=== PATIENT | male | born 1955 | race Caucasian/White ===

== ENCOUNTER 2018-05-25 15:29 | Emergency (ER) | payer OTHER ==
[2018-05-25] MEDS ORDERED: RANITIDINE 50 MG/2 ML VIAL IVP ONE (15:34)
[2018-05-25] MEDS ORDERED: methylPREDNISolone SOD SUCC 125 MG/2 ML VIAL IVP ONE (15:34)
[2018-05-25] MEDS ORDERED: NS 500 ML IV ONE (15:34)
[2018-05-25] MEDS ORDERED: RANITIDINE 50 MG/2 ML VIAL ONE (15:35)
--- NOTE | 2018-05-25 15:48 | EDPHY ---
H & P Time Seen by Provider: 05/25/18 15:36 HPI/ROS: HPI Allergic reaction to fish. 62-year-old male by private vehicle with his . This patient reports that he was eating sushi just prior to arrival. Shortly after eating this fish which included tuna and crab meat he started feeling flushed and hot and notice that he had a red rash over his entire body. No difficulty swallowing. No difficulty breathing. He has not had any associated lightheadedness. No palpitations. He has never had a reaction to eating fish in the past. ROS: Constitutional: No fever, no chills. As above. Eyes: No discharge. ENT: No sore throat. No nasal congestion or rhinorrhea. Respiratory: No cough. No shortness of breath. Cardiac: No chest pain, no palpitations. Gastrointestinal: No abdominal pain, no vomiting, no diarrhea. Musculoskeletal: No back pain. No neck pain. No myalgias or arthralgias. Skin: As above. Neurological: No headache. No focal weakness or altered sensation. Past medical history: Kidney stones, lower back surgery, hypertension, depression, dyslipidemia. Social history: Nonsmoker. Here with his daughter and . No alcohol. Physical Exam: General Appearance: Alert, he is not in distress. Urticarial rash over a large percentage of his body and face. This patient is responding to questions appropriately and in full sentences. This patient appears well-hydrated and well-nourished. Eyes: Pupils equal and round no pallor or injection. No lid edema, erythema or injection. ENT, Mouth: Mucous membranes are moist. The pharyngeal tissues are unremarkable. No edema or swelling. No asymmetry suggestive of abscess. No erythema or exudates. No stridor on auscultation of his neck. No voice changes. Respiratory: There are no retractions, lungs are clear to auscultation with good air movement bilaterally. Cardiovascular: Regular rate and rhythm. No murmur. Gastrointestinal: Abdomen is soft and nontender, no masses, bowel sounds normal. No focal tenderness at McBurney's point. No Love sign. Neurological: Motor sensory function is grossly intact. Cranial nerves are normal. Gait is normal. Skin: Warm and dry, blanching erythematous urticarial rash over about 80% of his body. No petechiae. Musculoskeletal: Neck is supple and nontender. Extremities are symmetrical. All joints range without pain or impingement. Psychiatric: No agitation. No depression. Database: EKG: Imaging: Procedures: Emergency department course: Triage vital signs reviewed. He is mildly hypertensive. Vital signs are otherwise normal. IV was placed. He was placed on a nuclear monitoring technician. He was started on IV normal saline with 500 cc to be given over the next hour. His presentation is consistent with Scombroid toxicity versus generalize anaphylaxis or anaphylactoid reaction. He will initially be given 125 mg of IV Solu-Medrol, 50 mg of IV ranitidine and 50 mg of IV Benadryl. 4:10 p.m., the patient was re-evaluated. Marked improvement. His rash is almost completely resolved. Repeat pharyngeal exam is unremarkable. His lung sounds are clear. He appears relaxed and comfortable. 4:50 p.m., patient re-evaluated. His symptoms have completely resolved. Repeat exam is unremarkable. He feels comfortable going home at this time and I feel he is safe for discharge. His presentation is consistent with Scombroid toxicity considering abrupt onset of symptoms shortly after eating dark meat fish and marked improvement with antihistamines. I will prescribe him antihistamines for another 2-3 days. He feels comfortable going home with his daughter. Follow-up and return to emergency department precautions reviewed with him. All of his questions were answered. He was discharged from the emergency department in good condition. Differential Diagnosis: The differential diagnosis on this patient includes but is not limited to Scombroid toxicity, anaphylaxis, anaphylactoid reaction. This represents a partial list of diagnoses considered. These considerations are based on history , physical exam, past history, reassessment and diagnostic testing. Smoking Status: Never smoked Constitutional: Initial Vital Signs Temperature (C) 36.8 C 05/25/18 15:39 Heart Rate 87 05/25/18 15:39 Respiratory Rate 18 05/25/18 15:39 Blood Pressure 143/83 H 05/25/18 15:39 O2 Sat (%) 92 05/25/18 15:39 O2 Delivery Mode Room Air Allergies/Adverse Reactions: poison coni extract [Poison Coni Extract] Allergy (Severe, Verified 09/14/12 13:04 ) Home Medications: Medication Instructions Recorded Aspirin 81mg (OTC) 81 mg PO DAILY 01/02/14 Atorvastatin Calcium [Lipitor 10 20 mg PO DAILY 01/02/14 mg (*)] Doxazosin Mesylate [Cardura 4 MG 4 mg PO BID 01/02/14 (*)] Metoprolol Succinate Xr [Toprol Xl 50 mg PO DAILY 01/02/14 50 mg (*)] QUEtiapine FUMARATE [Seroquel 25 300 mg PO HS 01/04/14 mg (*)] Albuterol 5 mg/ml INH 5 mg PUFF PRN PRN 10/23/15 Medical Decision Making - Data Points Medications Given: Discontinued Medications Diphenhydramine HCl (Benadryl Injection) 50 mg IVP EDNOW ONE Stop: 05/25/18 15:35 Last Admin: 05/25/18 15:41 Dose: 50 mg Sodium Chloride (Ns) 500 mls @ 0 mls/hr IV ONCE ONE; Wide Open PRN Reason: Protocol Stop: 05/25/18 15:35 Last Admin: 05/25/18 15:42 Dose: 500 mls Methylprednisolone Sodium Succinate (Solu-Medrol) 125 mg IVP EDNOW ONE Stop: 05/25/18 15:35 Last Admin: 05/25/18 15:42 Dose: 125 mg Ranitidine HCl (Zantac) 50 mg IVP EDNOW ONE Stop: 05/25/18 15:35 Last Admin: 05/25/18 15:43 Dose: 50 mg Departure - Departure Disposition: Home, Routine, Self-Care Clinical Impression: Scombroid fish poisoning Condition: Fair Instructions: General Allergic Reaction (ED) Additional Instructions: Read and follow provided instructions. Follow-up with your primary care physician in 1-2 days for re-evaluation. Continue Benadryl, 50 mg orally every 6-8 hours for the next 2 days. Pepcid which is another antihistamine should be taken 20 mg orally twice daily for the next 2 days. Return to the emergency department for return of rash, sensation of swelling in your throat, wheezing or difficulty breathing or other serious concerns. Referrals: Jama Crespo MD [Primary Care Provider] - As per Instructions
[2018-05-25 17:05] VITALS: BP 146/86
== END 2018-05-25 17:10 | disposition home or self-care (01) ==
LOC: CED 15:29
DX: R21 Rash and other nonspecific skin eruption (principal); T61.11XA Scombroid fish poisoning, accidental (unintentional), initial encounter; E86.9 Volume depletion, unspecified
CPT/HCPCS: 96361-ER; 96374-ER; 96375-ER; 99284-ER; J1200; J2780; J2930